=== PATIENT | female | born 1970 | race Caucasian/White ===

== ENCOUNTER 2025-03-26 18:09 | Emergency (ER) | payer MEDICAID, SELFPAY ==
--- NOTE | 2025-03-26 18:29 | EKG_ITS ---
[facility] Test Date: 2025-03-26 Pat Name: KENDRA OLIVO Department: Room: - Gender: Female Heat Treating Operator: : 1970 Requested By: Antonio Navarro Order Number: [id number] Reading MD: Antonio Navarro Measurements Intervals [place] Rate: 59 P: 66 VT: 195 QRS: 20 QRSD: 77 T: 42 QT: 388 QTc: 387 Interpretive Statements SINUS BRADYCARDIA LOW QRS VOLTAGE IN PRECORDIAL LEADS [QRS DEFLECTION < 1.0 mV IN CHEST LEADS] POSSIBLE ANTERIOR MYOCARDIAL INFARCTION , PROBABLY OLD [30 ms Q WAVE IN V3/V4, OR R < 0.2 mV IN V4] Compared to ECG 11/17/2022 10:58:34 Low QRS voltage now present Sinus rhythm no longer present Myocardial infarct finding still present /store/S0/[id number]/ecg/[id number].pdf
[2025-03-26 18:57] VITALS: BP 172/92; PULSE 60; RESP 18; TEMP 36.6; O2SAT 95; BMI 34.5
--- NOTE | 2025-03-26 19:08 | XR_ITS ---
Examination: CT brain head without contrast. 2-D sagittal coronal reconstructions Date and time of exam: March 26, 20251952 hours INDICATIONS: Headache blurred vision 1 week COMPARISON: November 17, 2022 CTDI: vol (mGy): 49.6 DLP: (mGycm): 1008 Technique: Multiple CT axial sections of the brain have been obtained, 5 mm slice thickness. Contrast has not been administered. 2-D sagittal, coronal reconstructions have been obtained Low dose protocols were performed. One or more of the following dose reduction techniques were used; automated exposure control, adjustment of the mA and/or KV according to patient size, use of iterative reconstruction technique. Findings: No significant ventricular enlargement. Intra-axial or extra-axial hemorrhage density is not seen. No mass effect or midline shift Basal cisterns are not remarkable. Fourth ventricle is midline. Cranial vault intact. Impression: Negative for acute hemorrhage, mass effect or midline shift Given the patient's presentation, consider brain MRI MRA without contrast follow-up
--- NOTE | 2025-03-26 19:08 | XR_ITS ---
EXAMINATION: PA chest single view TECHNIQUE: Upright PA chest single view Date and time: March 26, 2025 1932 hours INDICATIONS: Left-sided chest pain beginning 3 days ago. FINDINGS: Normal heart size Benign lobulation right hemidiaphragm. No pneumonia or pulmonary edema Intact osseous structures IMPRESSION: No pneumonia or pulmonary edema
--- NOTE | 2025-03-26 19:08 | PD.EDRME ---
Rapid Medical Screening Exam RME Arrival date/time: 03/26/25 18:09 54F with history of HTN, CAD, and CVA (at [place] per patient) presents to ED with several days of L chest pain, as some L eye blurry vision/JOYCE. Patient states only symptom right now is mild chest pressure. Patient also tested positive for strep in the clinic and was given unknown ABX. Chief Complaint: Chest Pain Time Seen by Provider: 03/26/25 18:59 Vital signs: Vital Signs Temperature 98 F 03/26/25 18:57 Pulse Rate 60 03/26/25 18:57 Respiratory Rate 18 03/26/25 18:57 Blood Pressure 172/92 H 03/26/25 18:57 Pulse Oximetry (%) 95 03/26/25 18:57 Oxygen Delivery Method Room Air 03/26/25 18:57 Exam: Normal pupil response and EOM. CN II-XII grossly intact. Speech normal. Neg pronator drift test. RRR and clear lungs with normal WOB. Clinical Impression: TIA/CVA vs AVS vs anxiety vs angina vs migraine vs JOYCE vs URI
[2025-03-26 19:28] LABS: Basophils # (Auto) 0.0 Thou/mm3 (0.0-0.2); Basophils % (Auto) 0 % (0-2.5); Eosinophils # (Auto) 0.2 Thou/mm3 (0.0-0.5); Eosinophils % (Auto) 3 % (0-10); Hematocrit 39.7 % (36.0-46.0); Hemoglobin 12.8 g/dL (12.0-16.0); Immature Granulocytes Auto 0.04 Thou/mm3 (0.00-0.00); Lymphocytes # (Auto) 2.5 Thou/mm3 (1.0-4.8); Lymphocytes % (Auto) 29 % (10-50); Mean Corpuscular HGB Conc 32.2 g/dl (31.0-37.0); Mean Corpuscular Hemoglobin 29.8 pg (25.0-35.0); Mean Corpuscular Volume 92 fL (80-100); Monocytes # (Auto) 0.7 Thou/mm3 (0.0-0.8); Monocytes % (Auto) 8 % (0-12); Neutrophils # (Auto) 5.0 Thou/mm3 (1.8-7.7); Neutrophils % (Auto) 59 % (37-80); Nucleated Red Blood Cell # 0.00 Thou/mm3 (0.00-0.00); Nucleated Red Blood Cell % 0 /100 WBC (0); Platelet Count 290 Thou/mm3 (140-440); RDW Standard Deviation 44.8 fL (36.4-46.3); Red Blood Count 4.30 Miln/mm3 (4.00-5.20); White Blood Count 8.4 Thou/mm3 (3.6-11.0)
[2025-03-26 19:42] LABS: INR 0.9 (0.9-1.3); Partial Thromboplastin Time 26.8 Seconds (22.0-36.0); Prothrombin Time 10.1 Seconds (9.0-12.2)
[2025-03-26 19:46] LABS: Alanine Aminotransferase 16 U/L (10-49); Albumin, Serum 4.6 gm/dL (3.5-5.0); Albumin/Globulin Ratio 1.8 (1.2-2.2); Alkaline Phosphatase 60 U/L (46-116); Anion Gap 9 (7-16); Aspartate Amino Transferase 18 U/L (0-34); BUN/Creatinine Ratio 15 Ratio (12-20); Bilirubin,Total 0.8 mg/dL (0.3-1.2); Blood Urea Nitrogen 12 mg/dL (9-23); Calcium 9.9 mg/dL (8.3-10.6); Calcium (Corrected) 9.9 mg/dL (8.5-10.1); Carbon Dioxide 26.7 mMol/L (20.0-31.0); Chloride 106 mMol/L (98-107); Creatinine (Component) 0.8 mg/dL (0.6-1.3); Estimated Creatinine Clearance 108.4 mL/min (>60); Globulin 2.5 gm/dL (2.3-3.5); Glucose 84 mg/dL (74-106); Osmolality,Calculated 281 (275-295); Potassium 4.0 mMol/L (3.4-5.1); Sodium 142 mMol/L (136-145); Total Protein 7.1 gm/dL (5.7-8.2); Troponin I < 0.020 ng/mL (0.0-0.045); eGFR > 60 See Note
--- NOTE | 2025-03-26 22:59 | PD.EDCHEST ---
ED Chest Pain RME/HPI General Chief Complaint: Chest Pain Stated Complaint: SENT BY PCP FOR TEMPORARY STROKE Time Seen by Provider: 03/26/25 18:59 Arrival date/time: 03/26/25 18:09 RME / HPI RME / HPI narrative: 03/26/25 18:09 54F with history of HTN, CAD, and CVA (at [place] per patient) presents to ED with several days of L chest pain, as some L eye blurry vision/JOYCE. Patient states only symptom right now is mild chest pressure. Patient also tested positive for strep in the clinic and was given unknown ABX. Exam: Normal pupil response and EOM. CN II-XII grossly intact. Speech normal. Neg pronator drift test. RRR and clear lungs with normal WOB. Impression: TIA/CVA vs AVS vs anxiety vs angina vs migraine vs JOYCE vs URI Related Data Home Medications ?Medication ?Instructions ?Recorded ?Confirmed furosemide 40 mg tablet (Lasix) 20 mg PO QDAY 09/03/21 04/23/22 Previous Rx's ?Medication ?Instructions ?Recorded furosemide 40 mg tablet (Lasix) 40 mg PO QDAY #30 tabs 04/30/22 losartan 25 mg tablet 25 mg PO QDAY #30 tabs 04/30/22 potassium chloride 20 mEq oral 20 meq PO QDAY #30 ea 04/30/22 packet tramadol 50 mg tablet 50 mg PO Q6H PRN pain #20 tabs 11/17/22 Allergies Allergy/AdvReac Type Severity Reaction Status Date / Time Sulfa (Sulfonamide Allergy Severe Rash Verified 03/26/25 18:13 Antibiotics) ED Exam Narrative Physical exam: Physical Exam: GENERAL: Awake, answers questions appropriately, appears stated age HEENT: NC/AT. Moist mucosa. PERRLA/EOMI. CARDIO: Heart RRR, no obvious murmurs, no JVD. PULM: No coughing or visible SOB. Lungs CTA B/L. GI: Abdomen soft, NT/ND, +BS. SKIN/MSK/EXT: No wounds/discoloration/rashes/edema/amputations noted. +Pedal pulses present B/L. NEURO: Oriented x3, Moves extremities x4, no focal neurologic deficits noted. Course Quality Measures none Orders Category Date Time Status EKG (ED ONLY) *Do not use* NOW Care 03/26/25 18:[address] head/brain wo con Stat Exams 03/26/25 19:08 Completed EKG (ED Only) Stat Exams 03/26/25 18:29 Draft XR chest 1V portable Stat Exams 03/26/25 19:08 Completed CBC Stat Lab 03/26/25 19:13 Completed CMP [Comprehensive Metabolic Panel] Stat Lab 03/26/25 19:13 Completed INR [Prothrombin Time with INR] Stat Lab 03/26/25 19:13 Completed PTT [Partial Thromboplastin Time] Stat Lab 03/26/25 19:13 Completed Troponin I Stat Lab 03/26/25 19:13 Completed Troponin I Stat Lab 03/26/25 23:16 Completed Vital Signs Vital signs: Vital Signs Temperature 98 F 03/26/25 18:57 Pulse Rate 60 03/26/25 18:57 Respiratory Rate 18 03/26/25 18:57 Blood Pressure 172/92 H 03/26/25 18:57 Pulse Oximetry (%) 95 03/26/25 18:57 Oxygen Delivery Method Room Air 03/26/25 18:57 Chest Pain MDM Narrative MDM Narrative:: HPI: 54-year-old female with past medical history of peripheral artery disease status post angioplasty, hypertension, hyperlipidemia, obesity presenting to the ED on 03/26 with chest discomfort. Patient states that for about 1 week she has been having chest tightness and feeling that someone is sitting on her chest. Patient states that the pain is about a 5 out of 10 and radiates to her left arm. She states that the pain would worsen with deep inspiration and improved with massaging the area. She also notes that past couple days she has been having some blurry vision which is waxing and waning and does not persistently occur. Patient apparently in the past was seen by assistant press operator several years ago and was told that her heart is without any disease. Of note though, patient has some peripheral artery disease status post angioplasty at a vascular center in [facility]. She does take aspirin 81 mg daily along with her antihypertensive medications. On examination, patient is awake answering questions appropriately and denies having any active chest pain at this time. HEENT, heart and lung auscultation is largely unremarkable, abdominal examination is unremarkable. Lower extremity without any pitting edema noted and pedal pulses are +2. On assessment, patient's blood pressure is 172/92, heart rate of 60, respiratory of 18, afebrile satting 95 on room air. CBC is largely unremarkable, CMP is also largely unremarkable, initial troponin is less than 0.020. EKG shows sinus bradycardia without any concerning ST changes noted, chest x-ray shows no active disease and head CT is negative for any acute process. #Atypical chest pain #Musculoskeletal disorder #Less likely to be angina or acute coronary syndrome As noted above, patient does have some risk factors for ACS including history of PAD, hypertension, hyperlipidemia Chest pain described above does not really meet typical chest pain symptoms. Troponin is negative, will order repeat EKG does not show any concerning ST changes Plan: Told patient to continue taking aspirin 81 mg daily Patient can greatly benefit from seeing a assistant press operator, counseled her on following up with PCP within the next 5 days and to ask for referral to establish care Patient understands that if her chest pain returns or if she develops new shortness of breath, dizziness, palpitations to come back to the ED immediately Patient seen and assessed with attending Dr. Marina Cobos, DO PGY-2 Internal Medicine - [facility] Patient data External records reviewed:: None Clinical information provided by:: patient Social determinants that could affect healthcare access:: none Patient has the following chronic illnesses:: Peripheral artery disease, hypertension How is presenting disease/condition affected by chronic disease/condition?: exacerbated by Evaluation data The following diagnostics were reviewed and interpreted by me:: lab results and radiology exam(s) Lab and/or radiology exams considered but not ordered:: As noted above Interpretation Summary: As noted above Medications / Prescriptions Medications or Prescriptions considered but not ordered:: As noted above Medication administrations:: As noted above Consultations Consultation(s) initiated? (list below): No Diagnosis Most likely diagnosis given after review of the tests above:: Musculoskeletal pain, costochondritis less likely to be angina coronary artery disease Admission Indicated Admission indicated?: not indicated Admission Request Was there a request for admission?: No Disposition Plan Disposition Plan: Discharge Discharge Attestation Discharge Attestation: The patient and all family members were given an opportunity to ask questions and understood the discharge instructions. Discharge instructions specifically effects, indications for sooner follow up or return to the emergency department, and the expected course of current diagnosis. Patient condition: Stable Discharge Plan Plan Patient Disposition: HOME (Self Care) Discharge Disposition comment: Please follow-up with your PCP within 5-7 days Ask your PCP to refer you to a assistant press operator to establish care as you have some risk factors for heart disease (history of peripheral artery disease and hypertension) Continue taking aspirin 81 mg until you are seen by your PCP If your chest pain returns or if you develop new shortness of breath, dizziness or palpitations - please come back to the ED immediately. Patient condition on transfer: Stable Prescriptions/Referrals Prescriptions/Med Rec: No Action furosemide [Lasix] 40 mg Tablet 20 mg PO QDAY furosemide [Lasix] 40 mg tablet 40 mg PO QDAY Qty: 30 0RF losartan 25 mg tablet 25 mg PO QDAY Qty: 30 0RF potassium chloride 20 mEq packet 20 meq PO QDAY Qty: 30 0RF tramadol 50 mg tablet 50 mg PO Q6H PRN (Reason: pain) Qty: 20 0RF Referrals: Dorita Melgoza MD [Primary Care Provider] - In 1 week Problem List Clinical Impression: Atypical chest pain Patient/Caregiver Discharge Instructions Education Materials: ED Chest Pain, Noncardiac Print Language: Nigerian Stand Alone Forms: [employer] Award Info., Patient Portal Info Letter Attestation Attestation I, Dr. Teixeira, have reviewed the history, exam, and assessment of the patient. I have evaluated the patient independently and agree with the plan of care documented by the resident Dr. Cobos. All diagnostic studies were reviewed and discussed. I confirm the diagnosis as documented by the resident. I was present during the Medical Decision Making for this patient. The patient?s plan of care was created between myself and the resident and consistent with our discussion of the patient?s case.
[2025-03-26 23:14] VITALS: BP 124/81; PULSE 56; RESP 18; TEMP 36.6; O2SAT 96
[2025-03-26 23:49] LABS: Troponin I < 0.020 ng/mL (0.0-0.045)
== END 2025-03-27 00:12 | disposition home or self-care (01) ==
PROVIDERS: Physician Assistant; Emergency Provider Emergency Medicine; PCP Family Medicine
DX: R07.89 Other chest pain (principal); I10 Essential (primary) hypertension; R00.1 Bradycardia, unspecified; R51.9 Headache, unspecified; H53.8 Other visual disturbances
CPT/HCPCS: 36415; 70450; 71045; 80053; 84484; 85025; 85610; 85730; 93005; 99283